=== PATIENT | female | born 1965 | race Caucasian/White ===

== ENCOUNTER 2019-02-06 22:45 | Emergency (ER) | payer MEDICARE ==
[~2019-02-06] VITALS: Ht 177.8 cm; Wt 90.9 kg
[2019-02-07 02:01] VITALS: BP 135/65
[2019-02-07] MEDS ORDERED: IBUPROFEN 600 MG TABLET PO ONE (02:15)
== END 2019-02-07 03:09 | disposition home or self-care (01) ==
LOC: EMS 22:47
DX: S93.401A Sprain of unspecified ligament of right ankle, initial encounter (principal); S83.91XA Sprain of unspecified site of right knee, initial encounter; I10 Essential (primary) hypertension; F17.200 Nicotine dependence, unspecified, uncomplicated; W18.40XA Slipping, tripping and stumbling without falling, unspecified, initial encounter; Y93.89 Activity, other specified; Y92.89 Other specified places as the place of occurrence of the external cause; Y99.8 Other external cause status
CPT/HCPCS: 29505; 29530